=== PATIENT | male | born 1985 | race Caucasian/White ===

== ENCOUNTER 2016-10-16 11:44 | Emergency (ER) | payer MEDICAID ==
[~2016-10-16] VITALS: Ht 180.3 cm; Wt 93.9 kg
[2016-10-16 13:43] VITALS: BP 128/64
== END 2016-10-16 13:43 | disposition home or self-care (01) ==
LOC: ED 11:44
DX: M10.072 Idiopathic gout, left ankle and foot (principal); F41.9 Anxiety disorder, unspecified
CPT/HCPCS: Q0092

== ENCOUNTER 2016-11-22 14:24 | Emergency (ER) | payer MEDICAID ==
[2016-11-22 15:33] VITALS: BP 139/86
== END 2016-11-22 15:33 | disposition home or self-care (01) ==
LOC: ED 14:24
DX: F32.9 Major depressive disorder, single episode, unspecified (principal); Z76.0 Encounter for issue of repeat prescription; F20.9 Schizophrenia, unspecified

== ENCOUNTER 2016-12-28 18:58 | Emergency (ER) | payer MEDICAID ==
[~2016-12-28] VITALS: Ht 180.3 cm; Wt 92.5 kg
[2016-12-28 21:32] VITALS: BP 151/99
== END 2016-12-28 21:32 | disposition home or self-care (01) ==
LOC: ED 18:58
DX: Z76.0 Encounter for issue of repeat prescription (principal); F99 Mental disorder, not otherwise specified; F41.9 Anxiety disorder, unspecified; F32.1 Major depressive disorder, single episode, moderate; F20.9 Schizophrenia, unspecified; Z79.899 Other long term (current) drug therapy